=== PATIENT | male | born 1955 | race Caucasian/White ===

== ENCOUNTER → 2024-01-24 10:04 | Outpatient (REF) | payer OTHER, SELFPAY | LOC: HWRAD 10:04 | PROVIDERS: ATTENDING PHYSICIAN Internal Medicine Critical Care Medicine; FAMILY PHYSICIAN Internal Medicine | DX: R91.1 Solitary pulmonary nodule (principal) | CPT/HCPCS: 71046 ==

== ENCOUNTER 2024-12-29 10:58 | Emergency (ER) | payer OTHER, SELFPAY ==
[2024-12-29 11:07] VITALS: BP 139/84
[2024-12-29 11:08] VITALS: BMI 20.8
[2024-12-29] MEDS: NSS 1000 IV (11:28)
[2024-12-29 11:38] LABS: Hematocrit 37.0 % (39.0-52.0); Hemoglobin 12.0 g/dL (13.0-18.0); Mean Corp Hgb Conc. 32.4 g/dL (33.0-37.0); Mean Corpuscular Volume 92.5 fL (80.0-94.0); Nucleated Red Blood Cells % 0 % (-); Platelet Count 271 10^3/uL (130-400); Red Cell Dist. Width 12.3 % (11.5-14.5)
[2024-12-29 12:02] LABS: COVID-19 Antigen Negative (Negative)
[2024-12-29 12:07] LABS: ALT (SGPT) 23 U/L (0-50); AST (SGOT) 28 U/L (17-59); Albumin 4.7 g/dl (3.5-5.0); Alkaline Phosphatase 187 U/L (38-126); Blood Urea Nitrogen 25 mg/dl (9-20); Calcium 9.8 mg/dl (8.4-10.2); Carbon Dioxide 27 mmol/L (22-30); Chloride 101 mmol/L (98-107); Estimated Creatinine Clearance 112 ml/min; Glucose 107 mg/dl (70-99); Lipase 319 U/L (23-300); Potassium 4.5 mmol/L (3.5-5.1); Sodium 137 mmol/L (135-145); Total Protein 8.2 g/dl (6.3-8.2); eGFR > 60.00
--- NOTE | 2024-12-29 14:24 | ED.GENMED ---
History of Present Illness
General
Chief Complaint: Cold/Flu/URI Symptoms
Source: patient
Exam Limitations: none
Time Seen by Provider: 12/29/24 11:02
Nursing documentation reviewed up to this point in time: agreed with
History of Present Illness
History of Present Illness:
see MDM
Past History
Past History
ED Past Medical History: COPD, GERD, HTN and Other (Liver failure due to Over use of Tylenol, Ventilator then trach, Coded X2, gastrostomy tube, Hyponatremia,)
Social History
Tobacco: Former smoker
Alcohol: None
Personal: Single
Living: [facility]
Review of Systems
Review of Systems
Allergies reviewed?: Yes
All Other Systems: Not applicable
Phy Exam
Physical Exam
Physical Exam:
GENERAL: Alert , in no apparent distress, no tachypnea or distress
EYE: pupils equal and reactive
NECK: Supple
ENT: o/p clr, mmm.
Neck: Supple, evidence of healed tracheostomy site
CARDIAC: Tachycardia
LUNGS: Clear breath sounds bilaterally, no acute respiratory distress, no wheezes/rales/rhonchi
ABDOMEN: Soft, without focal tenderness, no r/g, no cvat, normal bowel sounds
NEUROLOGICAL: Alert and oriented, no focal neuro deficits
SKIN: Warm and dry, skin intact.
MUSCULOSKELETAL: No edema, well perfused. No significant swelling, wearing pillows on his heels
PSYCH: Normal and appropriate interaction.
Course
Orders/Labs/Results
Orders:
Orders
12/29/24 11:04
Electrocardiogram (*1) Urgent
Reason for Study: Tachycardia
12/29/24 11:05
EKG- Treatment ONCE
12/29/24 11:19
0.9% Sodium Chloride 1000 ml [Nss] 1,000 ml IV BOLUS
CR Chest - 2 Views Urgent
Comment:
Reason For Exam: cough, sore throat, vomiting
12/29/24 11:29
COVID-19 Antigen Urgent
Source: Nasal Swab
Complete Blood Count/With Diff Urgent
Comprehensive Metabolic Panel Urgent
Lipase Urgent
Influenza A+B Rapid Molecular Urgent
ERICK Source: Nasal Swab
Specimen Description:
12/29/24 11:53
Rapid Strep Group A Urgent
ERICK Source: Throat/Pharynx
Specimen Description:
Date Specimen was Collected: 12/29/24
Time Specimen was Collected: 11:25
12/29/24 13:14
CT Abd/Pel (IV only)-DH only Urgent
Comment:
Reason For Exam: vomiting, elevated wbc, mild pancreas elevation
12/29/24 15:48
Urinalysis Reflex To Culture Urgent
Date Specimen was Collected: 12/29/24
Time Specimen was Collected: 14:33
Urine Microscopic Reflex Cult Urgent
12/29/24 23:45
Lorazepam [Ativan] 0.5 mg PO NOW STA
Abnormal Lab Results
12/29/24 12/29/24
11:29 15:48
WBC 15.3 H 10^3/uL
(4.8-10.8)
RBC 4.00 L 10^6/uL
(4.70-6.10)
Hgb 12.0 L g/dL
(13.0-18.0)
Hct 37.0 L %
(39.0-52.0)
MCHC 32.4 L g/dL
(33.0-37.0)
Abs Immat Gran (auto) 0.1 H 10^3/uL
(0-0.05)
Absolute Neuts (auto) 12.9 H 10^3/uL
(1.4-6.5)
Absolute Monos (auto) 0.7 H 10^3/uL
(0.1-0.6)
Neutrophils % 84.4 H %
(42.2-75.2)
Lymphocytes % 9.4 L %
(20.5-51.1)
BUN 25 H mg/dl
(9-20)
Creatinine 0.6 L mg/dL
(0.7-1.3)
Glucose 107 H mg/dl
(70-99)
Alkaline Phosphatase 187 H U/L
(38-126)
Lipase 319 H U/L
(23-300)
Urine Bacteria (Reflex) Few A
(Negative)
Urine Albumin (Reflex) 1+ A
(Neg - Trace)
12/29/24 11:29
12/29/24 11:29
Vital Signs
Initial and Last Documented VS:
Initial Vital Signs
Temp Pulse Resp BP Pulse Ox
36.8 C 126 16 139/84 97
12/29/24 11:07 12/29/24 11:07 12/29/24 11:07 12/29/24 11:07 12/29/24 11:07
Last Documented Vital Signs
Temp Pulse Resp BP Pulse Ox
36.8 C 116 16 151/84 95
12/29/24 11:07 12/29/24 22:30 12/29/24 22:07 12/29/24 22:07 12/29/24 22:30
MDM/Problems Addressed
Differential Diagnosis Includes:
See MDM
MDM/Problems Addressed:
Note:
CHIEF COMPLAINT(S)
Sore throat and vomiting.
HISTORY OF PRESENT ILLNESS
The [id number] y/o male, history of remote cardiac arrest requiring a trach and PEG, no longer with tracheostomy, COPD, hypertension from home presents with a prolonged sore throat and episodes of vomiting lasting one weeks. The sore throat began
before the onset of vomiting. The patient reports experiencing a cough and has had a recorded body temperature of 100.5 degrees Fahrenheit, indicating fever. The patient feels dehydrated and reports dry sensations. Vomiting occurred only once each
day, described as a significant episode. The patient is unable to eat due to nausea and denies diarrhea, body aches, chest pain, or shortness of breath. The patient was unaware of having atrial fibrillation, but confirmed no history of such. There
is no known history of atrial fibrillation causing previous heart rate issues.
PAST MEDICAL AND SURGICAL HISTORY
The patient reports a history of tracheostomy following an episode where family found him unconscious. The exact cause, whether trauma, heart attack, or brain hemorrhage, is not specified. There is no past history of hospitalization frequency
mentioned or details about other past medical conditions.
SOCIAL DETERMINANTS AFFECTING HEALTH
The patient lives with a sister who provides care.
PHYSICAL EXAM
- Throat shows redness at the back.
- Voice noted to be hoarse, a new development since the onset of sore throat.
- Occasional wheezing, not persistent.
- Abdominal examination revealed no pain on palpation.
Nursing notes reviewed and vital signs reviewed.
PLAN
Tests will be conducted to further evaluate the patients condition, and treatment will be provided accordingly.
DIFFERENTIAL DIAGNOSIS
The Differential Diagnosis includes, in no particular order and is not limited to:
1. Pharyngitis
2. Viral Upper Respiratory Infection
3. Bacterial Tonsillitis
4. Gastroesophageal Reflux Disease
5. Laryngitis
6. Dehydration
7. Influenza
8. Mononucleosis
9. Asthma exacerbation
10. Sinusitis
69 y/o M
chronic medical problems
cardiac arrrest, paraplegia
former trach
here with 1 week nauesa/vomiting x 1 daily, sore throat, dry cough
not feeling well
looks dehydrated
tachy 120s but afebrile
normotensive
nontender abdomen but given age, and elevated WBC decided to CT the abdomen
cxr independently reviewed, neg
minimial lfts elevation
ct was unremarkable
PO challenge tolerated
pt feels better after ivf
hr 90s which is nromal for him (low 100s normal)
attempted to call sister approx 10 times, she is not ansewing
left message
pt needs ride home and she is not home to receive him
*Pulse Oximetry
SaO2: 93
Oxygen Mode of Delivery: Room air
Patient hypoxic: no (95)
*Critical Care Note
Total Time (30-74mins, 75-104mins- exclusive of procedures): Not Applicable
ED Attending Note
-
Portions of this chart may have been created with voice recognition software.� Occasional wrong word or��sound alike� substitutions may have occurred due to the inherent limitations of voice recognition software.
Discharge Plan
Departure
Patient Disposition: Home (Routine Discharge)
Date of Disposition: 12/29/24
Time of Disposition: 16:29
Patient with high blood pressure during this ER visit?: Yes
Condition: Fair
Covid-19: Not Applicable
Discharge Problem:
Acute viral syndrome, Vomiting
Instructions: Viral Syndrome (DC)
Prescriptions:
No Action
trazodone 50 MG tablet
75 mg feeding tube HSPRN PRN (Reason: insomnia)
polyethylene glycol 3350 17 GRAMS powder in packet
17 grams feeding tube DAILYPRN PRN (Reason: constipation)
citalopram [Celexa] 10 MG/5 ML solution
10 mg feeding tube HS
ondansetron HCl 4 MG tablet
4 mg feeding tube Q4HPRN PRN (Reason: nausea)
thiamine HCl (vitamin B1) 100 MG tablet
100 mg feeding tube DAILY
lorazepam 0.5 MG tablet
0.5 mg feeding tube Q4H
ferrous sulfate 300 MG/5 ML liquid
300 mg feeding tube TID
lansoprazole [Prevacid] 15 MG capsule,delayed release(DR/EC)
15 mg PO Q12H
aspirin 81 MG tablet,chewable
81 mg feeding tube DAILY
folic acid 1 MG tablet
1 mg feeding tube DAILY
ibuprofen 600 MG tablet
600 mg PO [id number] PRN (Reason: pain)
albuterol sulfate 5 MG/ML solution for nebulization
5 mg inhalation Q4HPRN PRN (Reason: wheezing)
phenol [Sore Throat (phenol)] 1 SPRAY aerosol,spray
1 spray PO Q4HPRN PRN (Reason: sore throat)
sodium chloride [Saline Nasal] 50 SPRAYS/45 ML aerosol,spray
1 sprays intranasal Q4H
Patient Comments:
both nostrils
metoprolol tartrate 25 MG tablet
25 mg feeding tube Q12H
chlorhexidine gluconate 15 ML mouthwash
5 ml PO QID
heparin, porcine (PF) 5,000 UNITS/0.5 ML syringe
5,000 units SC Q12H
[id number] fumarate [Multi Vitamin] 9 MG/15 ML liquid
5 ml feeding tube DAILY
ipratropium-albuterol [Combivent Respimat] 1 PUFF mist
2 puff inhalation Q4H
Referrals:
Nickolas Howell MD [Family Provider, Internal Medicine] - Follow up in 2-3 days
Activity Restrictions/Additional Instructions:
Were not entirely sure the cause of your symptoms but it probably was viral. You had a slightly elevated white blood cell count which goes along with a viral infection but negative testing for flu and covid
your chest xray showed no pneumonia
your cat scan showed no abnormalities to explain your vomiting
you were mildly dehydrated and we gave you some fluids
drink fluids to stay hydrated
gentle food as tolerated, advance to normal diet over the next few days
follow up with your doctor
return for worse problems.
Interventions
Interventions:
*Risk Screen - Suicide Last Done: 12/29/24 11:06
*General Assessment Last Done: 12/29/24 11:06
*Neglect/Abuse Screening Last Done: 12/29/24 11:06
*ED- Fall Risk Assessment Last Done: 12/29/24 11:06
*ED COVID-19 Vaccine History Last Done: 12/29/24 11:06
*ED Influenza Vaccine History Last Done: 12/29/24 11:06
*Nursing Disposition Last Done: 12/30/24 00:13
ED- Pulmonary Assessment Last Done: 12/29/24 11:15
Discharge Date and Time
Discharge Date/Time: 12/30/24 00:25
Print Language: COLOMBIAN
[2024-12-29 15:17] VITALS: BP 128/77
[2024-12-29 15:59] LABS: Urine Character Clear (Clear)
[2024-12-29 16:00] VITALS: BP 149/88
[2024-12-29 16:11] LABS: Urine Red Blood Cell 0-2 /HPF (0-2); Urine Squamous Cell 0-2 /LPF (Few); Urine White Cell 0-2 /HPF (0-5)
[2024-12-29 20:02] VITALS: BP 156/82
[2024-12-29 22:07] VITALS: BP 151/84
[2024-12-29] MEDS: ATIVAN 0.5 MG PO (23:49)
== END 2024-12-30 00:25 | disposition home or self-care (01) ==
LOC: EMR 10:58
PROVIDERS: Physician Assistant; EMERGENCY PHYSICIAN Emergency Medicine; FAMILY PHYSICIAN Internal Medicine
DX: B34.9 Viral infection, unspecified (principal); R11.10 Vomiting, unspecified; R00.0 Tachycardia, unspecified; I10 Essential (primary) hypertension; J44.9 Chronic obstructive pulmonary disease, unspecified; K21.9 Gastro-esophageal reflux disease without esophagitis; Z86.74 Personal history of sudden cardiac arrest; Z87.891 Personal history of nicotine dependence
CPT/HCPCS: 99284; 96360; 71046; 74177; 80053; 81003; 81015; 83690; 85025; 87070; 87502; 87811; 87880; 93005; Q9967